=== PATIENT | female | born 1995 | race Caucasian/White ===

== ENCOUNTER → 2018-07-18 07:24 | Outpatient (CLI) | payer BC | END | disposition home or self-care (01) | LOC: D.US 07:24 | DX: R10.9 Unspecified abdominal pain (principal); R19.7 Diarrhea, unspecified ==

== ENCOUNTER → 2018-07-28 07:44 | Outpatient (CLI) | payer BC ==
[~2018-07-28 07:44] MED LIST: OMEPRAZOLE20 M1 PO
== END | disposition home or self-care (01) ==
LOC: D.NM 07:44
DX: R10.9 Unspecified abdominal pain (principal); R19.7 Diarrhea, unspecified

== ENCOUNTER 2018-08-23 09:01 | Emergency (ER) | payer BC ==
[~2018-08-23] VITALS: Ht 175.3 cm; Wt 68.2 kg
[2018-08-23 09:07] VITALS: Ht 175.3 cm; Wt 68.2 kg
[2018-08-23 10:00] LABS: BASOPHILS 0.4 % (0-2); EOSINOPHILS 2.8 % (0-7); HEMOGLOBIN 15.6 g/dL (12-16); IMMATURE GRANULOCYTES 0.5 % (0-5); LYMPHOCYTES 12.7 % (15-50); MCH 30.5 pg (26.0-34.0); MCHC 35.5 g/dL (31.0-37.0); MCV 86.1 fL (80.0-100.0); MEAN PLATELET VOLUME 10.5 fL (7.4-10.4); MONOCYTES 7.6 % (2-11); PLATELET COUNT 313 10x3/uL (130-400); RBC 5.11 10x6/uL (4.00-5.40); RDW 12.8 % (11.5-14.5)
[2018-08-23 10:16] LABS: ANION GAP 19.4 mmol/L (8-16); BILIRUBIN - TOTAL 0.59 mg/dL (0.2-1.3); CALCIUM 9.8 mg/dL (8.5-10.1); CARBON DIOXIDE 22.2 mmol/L (21.0-32.0); CREATININE - SERUM 1.2 mg/dL (0.6-1.3); POTASSIUM - SERUM 3.6 mmol/L (3.5-5.1); PROTEIN - SERUM 7.5 g/dL (6.4-8.2)
[2018-08-23 10:44] LABS: HCG URINE NEGATIVE (NEGATIVE)
[2018-08-23] MEDS ORDERED: OMEPRAZOLE20 M1 PO (10:44)
[2018-08-23 10:45] LABS: APPEARANCE CLOUDY (CLEAR); COLOR YELLOW (YELLOW); GLUCOSE NEGATIVE (NEGATIVE); NITRITE NEGATIVE (NEGATIVE); PROTEIN 1+ mg/dL (NEGATIVE); SPECIFIC GRAVITY 1.015 (1.005-1.020)
[2018-08-23 10:46] LABS: BILIRUBIN NEGATIVE (NEGATIVE); KETONE SMALL mg/dL (NEGATIVE); UROBILINOGEN NORMAL (NORMAL)
[2018-08-23 10:50] LABS: BACTERIA MODERATE /hpf (NONE SEEN); EPITHELIAL CELLS 0-5 /hpf (0-5); RED CELLS - URINE 0-5 /hpf (0-5); WHITE CELLS - URINE >50 /hpf (0-5)
[2018-08-23 11:45] VITALS: BP 107/73
== END 2018-08-23 11:20 | disposition home or self-care (01) ==
LOC: D.ER 09:01
PROVIDERS: Family Medicine
DX: R07.9 Chest pain, unspecified (principal); K22.4 Dyskinesia of esophagus; K21.9 Gastro-esophageal reflux disease without esophagitis